=== PATIENT | male | born 2000 | race Caucasian/White ===

== ENCOUNTER 2023-08-02 01:53 | Emergency (ER) | payer OTHER ==
[~2023-08-02] VITALS: Ht 175.3 cm; Wt 108.9 kg
[2023-08-02 02:14] VITALS: BP_SYST 133; PULSE 100; RESP 20; TEMP 98; O2SAT 98
[2023-08-02 04:36] VITALS: BP_SYST 132; PULSE 97; RESP 18; TEMP 98.1; O2SAT 98
== END 2023-08-02 04:47 | disposition home or self-care (01) ==
LOC: SED 01:53
DX: S60.221A Contusion of right hand, initial encounter (principal); Z79.899 Other long term (current) drug therapy; Y04.0XXA Assault by unarmed brawl or fight, initial encounter; Y93.89 Activity, other specified; Y92.89 Other specified places as the place of occurrence of the external cause; Y99.8 Other external cause status
CPT/HCPCS: 99283